=== PATIENT | female | born 1965 | race Caucasian/White ===

== ENCOUNTER 2017-08-18 06:36 | Day surgery (SDC) | payer MEDICAID, OTHER ==
[~2017-08-18] VITALS: Ht 157.5 cm; Wt 79.8 kg
[2017-08-18] MEDS ORDERED: METF500T2 PO (08:39)
[2017-08-18] MEDS ORDERED: PROPOFOL 200 MG/20 ML VIAL IV ONE (08:54)
[2017-08-18] MEDS ORDERED: DESFLURANE 240 ML BTL INH ONE (08:54)
[2017-08-18] MEDS ORDERED: LIDOCAINE 2% 100 MG/5 ML SYR IVP ONE (08:54)
[2017-08-18] MEDS ORDERED: fentaNYL 0.05 MG/ML VIAL ONE (09:04)
[2017-08-18] MEDS ORDERED: MIDAZOLAM 2 MG/2 ML VIAL ONE (09:05)
[2017-08-18] MEDS ORDERED: PHENYLEPHRINE 1% 15 ML BTL NS ONE (09:28)
[2017-08-18] MEDS ORDERED: DEXAMETHASONE 10 MG/ML VIAL ONE (09:31)
[2017-08-18] MEDS ORDERED: ONDANSETRON 4 MG/2 ML VIAL IVP PRN (09:40)
[2017-08-18] MEDS ORDERED: HYDROmorphone PFS 2 MG/ML SYR IVP PRN (09:40)
[2017-08-18] MEDS ORDERED: BLOOD GLUCOSE MONITORING 1 DEV DEV FS ONE (09:40)
[2017-08-18] MEDS ORDERED: DEXT 5% / NACL 0.2% 500 ML IV SCH (10:10)
[2017-08-18] MEDS ORDERED: PROMETHAZINE 25 MG SUPP RC PRN (10:10)
[2017-08-18] MEDS ORDERED: ACETAMIN/CODEINE 120/12MG-5ML 5 ML UDC PO PRN (10:10)
[2017-08-18] MEDS ORDERED: guaiFENesin DM 200/20 MG-10 ML 10 ML UDC PO PRN (10:10)
[2017-08-18] MEDS ORDERED: ACETAMIN/CODEINE 120/12MG-5ML 5 ML UDC ONE (11:30)
== END 2017-08-18 12:00 | disposition home or self-care (01) ==
LOC: MDS 06:36 → MMU 06:40 → MDS 12:00
PROVIDERS: ATTEND Otolaryngology
DX: J38.3 Other diseases of vocal cords (principal); E66.9 Obesity, unspecified; D64.9 Anemia, unspecified; I10 Essential (primary) hypertension; I25.119 Atherosclerotic heart disease of native coronary artery with unspecified angina pectoris; F03.90 Unspecified dementia, unspecified severity, without behavioral disturbance, psychotic disturbance, mood disturbance, and anxiety; N19 Unspecified kidney failure; K21.9 Gastro-esophageal reflux disease without esophagitis; J45.909 Unspecified asthma, uncomplicated; Z98.51 Tubal ligation status; Z98.890 Other specified postprocedural states; E78.5 Hyperlipidemia, unspecified; E11.9 Type 2 diabetes mellitus without complications; E05.90 Thyrotoxicosis, unspecified without thyrotoxic crisis or storm; Z83.3 Family history of diabetes mellitus; Z79.899 Other long term (current) drug therapy; Z79.84 Long term (current) use of oral hypoglycemic drugs; Z88.1 Allergy status to other antibiotic agents; Z88.0 Allergy status to penicillin; Z88.2 Allergy status to sulfonamides; Z88.8 Allergy status to other drugs, medicaments and biological substances; F17.210 Nicotine dependence, cigarettes, uncomplicated
CPT/HCPCS: 43200; 82948; 93005; J1100; J2001; J2250; J2704; J3010

== ENCOUNTER 2021-03-27 10:34 | Emergency (ER) | payer OTHER, SELFPAY ==
[~2021-03-27] VITALS: Ht 154.9 cm; Wt 88.9 kg
[~2021-03-27 10:34] MED LIST: METF500T2 PO
[2021-03-27 11:06] VITALS: BP 120/67
--- NOTE | 2021-03-27 11:09 | NUR ---
PT TO AWAIT IN TENT
[2021-03-27] MEDS ORDERED: REGENERON ANTIBODY ER ORDER 1 EA MISC MC ONE (11:45)
--- NOTE | 2021-03-27 11:45 | NUR ---
PT TAKEN TO BED 1.
--- NOTE | 2021-03-27 12:05 | NUR ---
56 FEMALE WITH C/O SOB AND DIFFICULTY BREATHING X5 DAYS. TESTED COVID + 03/21/21. PT STATES SHE IS EXPERINCING MUSCLE PAIN WELL WHEN SHE WALKS. PT STATES SHE HAS HAD SOME CHEST PAIN FOR THE X5 DAYS DUE TO THE SOB, BUT PAIN IS NO RADIATING. S1 AND S2 HEARD UPON ASSESSMENT. UPON ASSESSMENT BREATHING WAS SLIGHTLY DIMINISHED ON BILATERAL LOWER LOBES. 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 ON RA PT O2 IS 93%. MEDHX: DM, COVID+ NKA
[2021-03-27] MEDS ORDERED: NON-FORMULARY ITEM 1 EA in NACL 0.9% 100 ML IV ONE (12:15)
[2021-03-27] MEDS ORDERED: ALBU0.0912 IH (12:43)
[2021-03-27] MEDS ORDERED: AZIT250T4 PO (12:43)
[2021-03-27] MEDS ORDERED: ROBAC PO (12:43)
[2021-03-27] MEDS ORDERED: AZITHROMYCIN 500 MG in DEXTROSE 5% 250 ML IV ONE (14:05)
[2021-03-27] MEDS ORDERED: DEXAMETHASONE 4 MG/ML VIAL IVP ONE (14:05)
--- NOTE | 2021-03-27 14:10 | NUR ---
PT PLACED ONTO 2 L NC AND CURRENTLY SATING 93%
[2021-03-27 14:43] LABS: BASOPHILS % (AUTO) 0.2 % (0.0-2.0); HEMATOCRIT 39.6 % (36-48); HEMOGLOBIN 13.1 g/dL (12.0-16.0); LYMPHOCYTES # (AUTO) 1.3 K/uL (2.5-16.5); LYMPHOCYTES % (AUTO) 17.1 % (20.5-51.1); MEAN CORPUSCULAR HEMOGLOBIN 28 pg (27-31); MEAN CORPUSCULAR HGB CONC 33 g/dL (33-37); MEAN CORPUSCULAR VOLUME 85.7 fL (80-94); MONOCYTES # (AUTO) 0.2 K/uL (0.8-1.0); MONOCYTES % (AUTO) 2.9 % (1.7-9.3); NEUTROPHILS # (AUTO) 6.1 K/uL (1.8-7.7); NEUTROPHILS % (AUTO) 79.8 % (42.2-75.2); PLATELET COUNT (AUTO) 278 K/uL (140-450); RED BLOOD CELL COUNT(AUTO) 4.62 MIL/uL (4.20-5.40); WHITE BLOOD COUNT (AUTO) 7.7 K/uL (4.8-10.8)
--- NOTE | 2021-03-27 14:43 | NUR ---
SPOKE WITH JULIETA FROM [facility] AND PROVIDED UPDATE ON PT STATUS
[2021-03-27] MEDS ORDERED: cefTRIAXone 1,000 MG VIAL ONE (14:45)
[2021-03-27 15:01] LABS: ANION GAP 8.5 (8-16); CARBON DIOXIDE 28.7 mmol/L (21-32); CREATININE 0.7 mg/dL (0.6-1.3); POTASSIUM 3.2 mmol/L (3.5-5.1); TOTAL BILIRUBIN 0.4 mg/dL (0.0-1.0)
[2021-03-27 15:02] LABS: PROTHROMBIN TIME 9.3 secs (10.8-13.4)
--- NOTE | 2021-03-27 15:05 | NUR ---
COVID NOVEL, COVID ELTON, RSV, INFLUENZA A&B SWAB COLLECTED BEDSIDE AND HANDED TO NSH TEACHER. URINE COLLECTED BEDSIDE AND HANDED TO NSH TEACHER BEDSIDE
[2021-03-27 15:16] LABS: APPEARANCE,URINE CLEAR (CLEAR); BILIRUBIN,URINE NEGATIVE (NEGATIVE); BLOOD, URINE TRACE-I (NEGATIVE); COLOR,URINE YELLOW (YELLOW); LEUKOCYTE ESTERASE ,URINE NEGATIVE (NEGATIVE); NITRITE, URINE NEGATIVE (NEGATIVE); UGLUCOSE NEGATIVE (NEGATIVE)
[2021-03-27 15:20] LABS: C-REACTIVE PROTEIN QUANT 7.7 mg/dL (0.0-0.9); LACTATE DEHYDROGENASE 192 U/L (81-234)
[2021-03-27 15:28] LABS: RBC,URINE 0-5 /HPF (0-5); WBC,URINE 0-5 /HPF (0-5)
[2021-03-27] MEDS ORDERED: AZITHROMYCIN 500 MG INJ VIAL IV ONE (15:29)
[2021-03-27] MEDS ORDERED: POTASSIUM CHLORIDE 10 MEQ TABER PO ONE (15:40)
--- NOTE | 2021-03-27 15:42 | NUR ---
PT CURRENTLY RESTING BEDSIDE WITH EYES CLOSED. 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 EQUAL CHEST RISE AND FALL NOTED. VITAL SIGNS CURRENTLY STABLE. BED IN LOWET POSITION WITH SIDERAIL X1 UP. BED LOCKED. WILL CONTINUE TO MONITOR.
--- NOTE | 2021-03-27 17:06 | NUR ---
PT PROVIDED WITH PEREZ LINDSAY
--- NOTE | 2021-03-27 19:13 | NUR ---
OBTAINED CONSENT FOR PT TRANSFER TO [facility]
--- NOTE | 2021-03-27 19:23 | NUR ---
Pt report given to PADMAJA DE LA ROSA. Transfer of care at this time.
--- NOTE | 2021-03-27 19:50 | NUR ---
PT IS A&O X4, RESTING. EQUAL RISE AND FALL OF CHEST WALL. PT DENIES PAIN AND DISCOMFORT. DENIES SOB. ALL NEEDS MET AT THIS TIME. BED LOCKED IN LOWEST POSITION, SIDE RAILS X2.
--- NOTE | 2021-03-27 20:03 | NUR ---
CALLED AND GAVE REPORT TO PADMAJA ESTRADA AT [facility].
[2021-03-27 21:26] LABS: RSV NEGATIVE (NEGATIVE)
[2021-03-27 21:40] VITALS: BP 121/66
--- NOTE | 2021-03-27 21:40 | NUR ---
Patient to be transferred to [facility]. Is being transferred due to HIGHER LEVEL OF CARE. Receiving facility has accepting physician and available space. ER physician has signed transfer form. Patient or responsible democrat has agreed to transfer and signed form. Patient belongings inventoried and will be sent with patient. Copy of nursing notes, lab reports, EKG, Physicians Orders and X-rays to be sent with patient. Report called to PADMAJA ESTRADA at receiving facility. [facility] ambulance service has been called for transfer. ETA is 20.
== END 2021-03-27 21:40 | disposition short-term general hospital (02) ==
LOC: MED 10:34
DX: U07.1 COVID-19 (principal); J12.82 Pneumonia due to coronavirus disease 2019; R09.02 Hypoxemia; E11.9 Type 2 diabetes mellitus without complications
CPT/HCPCS: 36415; 36600; 71045; 80053; 81001; 82550; 82728; 82803; 83605; 83615; 83880; 84484; 85025; 85379; 85384; 85610; 85730; 86140; 87040; 87086; 87420; 87426; 87804; 93005; 96365; 96366; 96368; 96375; 99291; J0456; J0696; J1100; U0003

== ENCOUNTER 2022-02-22 00:55 | Emergency (ER) | payer OTHER ==
[~2022-02-22] VITALS: Ht 152.4 cm; Wt 88.0 kg
[~2022-02-22 00:55] MED LIST changes: +ALBU0.0912 IH; +AZIT250T4 PO; +METF-1139 PO; -METF500T2 PO; +ROBAC PO
[2022-02-22 01:03] VITALS: BP 142/69
--- NOTE | 2022-02-22 01:06 | NUR ---
PT AMBULATED TO BED #3
--- NOTE | 2022-02-22 01:30 | NUR ---
56/F BIB SELF C/C 05/03 LUQ PAIN XMIDNIGHT. AROUND 11PM SHE STARTED FEELING BLOATED SO SHE TOOK SODIUM BICARB. WHICH CAUSE "BURNING LIKE PAIN ON THE LUQ". PER PATIETN SHE TOOK MOM DUE TO CONSTIPATION AT 3PM. PATIENT STATED SHE HAD X3 EPISODES OF DIARRHEA.PATIETN DENIES N/V. PATIENT SITTING IN BED, PLACED ON GOWN. CURRENTLY GUARDING STOMACH DUE TO THE PAIN. BED LOW AND LOCKED. MILO SIDE RAILS UP FOR SAFETY. ALL NEEDS MET. MD AT BEDSIDE, PMHX DM, HYPOTHY. RX METFORMIN, VIT D NKA
--- NOTE | 2022-02-22 01:34 | NUR ---
DR VIVAR EXAMINING PT
[2022-02-22] MEDS ORDERED: MORPHINE SULFATE 4 MG/ML SYR IVP ONE (01:45)
[2022-02-22] MEDS ORDERED: NACL 0.9% 1,000 ML IV ONE (01:45)
[2022-02-22] MEDS ORDERED: ONDANSETRON 4 MG/2 ML VIAL IVP ONE (01:45)
--- NOTE | 2022-02-22 01:50 | NUR ---
IV ESTABLISHED 20G LEFT AC WITH BLOOD WITHDRAWL. BLOOD HANDED TO LAB.
--- NOTE | 2022-02-22 01:55 | NUR ---
ultrasound at bedside
--- NOTE | 2022-02-22 01:55 | NUR ---
PATIETN UNABLE TO PROVIDE URINE. WILL ATTEMPT AGAIN LATER.
[2022-02-22 02:14] LABS: BASOPHILS # (AUTO) 0.1 K/uL (0.00-0.22); BASOPHILS % (AUTO) 1.3 % (0.0-2.0); EOSINOPHILS # (AUTO) 0.2 K/uL (0-0.4); EOSINOPHILS % (AUTO) 1.7 % (0.0-4.0); HEMATOCRIT 41.1 % (36-48); HEMOGLOBIN 13.5 g/dL (12.0-16.0); LYMPHOCYTES # (AUTO) 3.1 K/uL (2.5-16.5); LYMPHOCYTES % (AUTO) 32.2 % (20.5-51.1); MEAN CORPUSCULAR HEMOGLOBIN 28 pg (27-31); MEAN CORPUSCULAR HGB CONC 33 g/dL (33-37); MEAN CORPUSCULAR VOLUME 86.7 fL (80-94); MONOCYTES # (AUTO) 0.6 K/uL (0.8-1.0); MONOCYTES % (AUTO) 6.2 % (1.7-9.3); NEUTROPHILS # (AUTO) 5.6 K/uL (1.8-7.7); NEUTROPHILS % (AUTO) 58.6 % (42.2-75.2); PLATELET COUNT (AUTO) 308 K/uL (140-450); RED BLOOD CELL COUNT(AUTO) 4.74 MIL/uL (4.20-5.40); RED CELL DISTRIBUTION WIDTH 14.2 % (11.6-13.7); WHITE BLOOD COUNT (AUTO) 9.5 K/uL (4.8-10.8)
--- NOTE | 2022-02-22 02:19 | NUR ---
PT TAKEN TO RADIOLOGY VIA [facility]
[2022-02-22 02:35] LABS: ALBUMIN 3.6 g/dL (3.4-5.0); ANION GAP 13.4 (8-16); CARBON DIOXIDE 31.3 mmol/L (21-32); POTASSIUM 3.7 mmol/L (3.5-5.1); TOTAL BILIRUBIN 0.2 mg/dL (0.0-1.0)
--- NOTE | 2022-02-22 02:37 | NUR ---
PATIENT UNABLE TO PROVIDE URINE. MD AWARE.
--- NOTE | 2022-02-22 02:51 | NUR ---
PAIN DECREASED 0/10
--- NOTE | 2022-02-22 02:53 | NUR ---
PATIENT AMBULATED TO THE RR
--- NOTE | 2022-02-22 02:56 | NUR ---
URINE COLLECTED AND WALKED TO LAB
--- NOTE | 2022-02-22 05:35 | NUR ---
Patient being evaluated by physician at bedside.
--- NOTE | 2022-02-22 05:40 | NUR ---
IV removed, catheter intact and site benign. Applied folded 4x4 gauze and tape to stop bleeding.
[2022-02-22 05:43] VITALS: BP 130/78
--- NOTE | 2022-02-22 05:43 | NUR ---
Patient discharged with v/s stable. Written and verbal after care instructions given and explained BY MD VIVAR. Patient verbalized understanding. Ambulatory with steady gait. All questions addressed prior to discharge BY MD VIVAR. Advised to follow up with PMD.
--- NOTE | 2022-02-22 06:11 | NUR ---
The patient's care was reviewed and supervised by Carmen Ibarra RN.
[2022-02-22 07:16] LABS: APPEARANCE,URINE CLEAR (CLEAR); BILIRUBIN,URINE NEGATIVE (NEGATIVE); BLOOD, URINE NEGATIVE (NEGATIVE); COLOR,URINE YELLOW (YELLOW); LEUKOCYTE ESTERASE ,URINE NEGATIVE (NEGATIVE); NITRITE, URINE NEGATIVE (NEGATIVE); UGLUCOSE NEGATIVE (NEGATIVE)
== END 2022-02-22 05:43 | disposition home or self-care (01) ==
LOC: MED 00:55
DX: K80.80 Other cholelithiasis without obstruction (principal); R11.2 Nausea with vomiting, unspecified; E11.9 Type 2 diabetes mellitus without complications; E07.9 Disorder of thyroid, unspecified; Z79.899 Other long term (current) drug therapy; Z79.84 Long term (current) use of oral hypoglycemic drugs
CPT/HCPCS: 36415; 74176; 76705; 80053; 81003; 82150; 83690; 85025; 87040; 96361; 96374; 96375; 99285; J2270; J2405; J7030; Q0092